=== PATIENT | female | born 1985 | race Caucasian/White ===

== ENCOUNTER 2017-01-03 02:09 | Inpatient (IN) | payer SELFPAY ==
[2017-01-03] VITALS (8 sets, daily range): BP systolic 102–134; BP diastolic 49–73; PULSE 70–90; RESP 14–21; TEMP 97.8–100; O2SAT 94–100
[~2017-01-03 02:09] MED LIST: ALBU6.7H INH; ZITH250T PO
[2017-01-03] MEDS ORDERED: ONDANSETRON HCL 4 MG/2 ML VIAL ONE (02:11)
[2017-01-03] MEDS ORDERED: METOCLOPRAMIDE HCL 10 MG/2 ML VIAL ONE (02:25)
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
[2017-01-03 02:33] LABS: AUTOMATED NEUTROPHIL # 5.7 TH/MM3 (1.8-7.7); BASOPHIL # 0.1 TH/MM3 (0-0.2); BASOPHIL % 0.5 % (0.0-2.0); EOSINOPHIL # 0.1 TH/MM3 (0-0.4); EOSINOPHIL % 0.6 % (0.0-4.0); HEMATOCRIT 38.3 % (35.0-46.0); LYMPH % 42.9 % (9.0-44.0); LYMPHOCYTE # 5.2 TH/MM3 (1.0-4.8); MEAN CELL VOLUME 88.4 FL (80.0-100.0); MEAN CORPUSCULAR HEMOGLOBIN 30.3 PG (27.0-34.0); MEAN CORPUSCULAR HGB CONC 34.3 % (32.0-36.0); MONO % 9.1 % (0.0-8.0); NEUT % 46.9 % (16.0-70.0); PLATELET COUNT 203 TH/MM3 (150-450); RED BLOOD COUNT 4.33 MIL/MM3 (4.00-5.30); RED CELL DISTRIBUTION WIDTH 12.8 % (11.6-17.2); WHITE BLOOD COUNT 12.2 TH/MM3 (4.0-11.0)
[2017-01-03 02:34] LABS: HEMO FLAGS AUTO DIFF
[2017-01-03 02:39] LABS: I-STAT SODIUM 142 MMOL/L (138-146)
[2017-01-03] MEDS ORDERED: ACETAMINOPHEN 325 MG TAB PO PRN (02:45)
[2017-01-03] MEDS ORDERED: SODIUM CHLORIDE 0.9% FLUSH 5 ML FLUSH IVF PRN (02:45)
[2017-01-03] MEDS ORDERED: IOHEXOL 350 MG/ML 10 ML VIAL (for RAD DIAG) IV ONE (02:46)
[2017-01-03 02:50] LABS: APTT (PATIENT) 23.2 SEC (24.3-30.1); INTERNATIONAL NORMALIZED RATIO 1.1 RATIO; PROTHROMBIN TIME - PATIENT 12.3 SEC (9.8-11.6)
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
[2017-01-03 02:57] LABS: BETA HCG QUANT LESS THAN 1 MIU/ML (0-5)
[2017-01-03] MEDS ORDERED: ONDANSETRON HCL 4 MG/2 ML VIAL IV ONE (03:00)
[2017-01-03] MEDS ORDERED: METOCLOPRAMIDE HCL 10 MG/2 ML VIAL IV ONE (03:00)
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
[2017-01-03] MEDS: cefTRIAXone INJ 1,000 MG in SODIUM CHLORIDE 0.9% INJ 100 ML IV SCH ×2 (03:05→13:48)
[2017-01-03] MEDS: SODIUM CHLOR 0.9% 1000 ML INJ 1,000 ML IV SCH ×3 (03:06→13:45)
[2017-01-03] MEDS: PANTOPRAZOLE SODIUM 40 MG VIAL IVP SCH ×2 (03:06→09:00)
[2017-01-03] MEDS: BACITRACIN TOP OINT 15 GM TUBE TOP SCH (03:06)
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
[2017-01-03 03:29] LABS: EOSINOPHILS 1 % (0-4); NEUTROPHIL # MANUAL DIFF 6.8 TH/MM3 (1.8-7.7); POLYS (SEG NEUTROPHILS) 56 % (16-70); WBC DIFF SAMPLE 100
[2017-01-03 03:30] LABS: PLATELET ESTIMATE SMEAR NORMAL (NORMAL); PLATELET MORPHOLOGY NORMAL (NORMAL); SCAN/DIFF FINAL DIFF MANUAL
[2017-01-03] MEDS: ONDANSETRON HCL 4 MG/2 ML VIAL IV PRN ×2 (06:36→13:02)
[2017-01-03] MEDS ORDERED: POTASSIUM PHOSPHATE INJ 30 MMOL in SODIUM CHLOR 0.9% 250 ML INJ 250 ML IV PRN (08:15)
[2017-01-03] MEDS ORDERED: SODIUM PHOSPHATE INJ 30 MMOL in SODIUM CHLOR 0.9% 250 ML INJ 240 ML IV PRN (08:15)
[2017-01-03] MEDS ORDERED: POTASSIUM CHLOR 20 MEQ PREMIX 100 ML IV PRN ×2 (08:15)
[2017-01-03] MEDS ORDERED: POTASSIUM PHOSPHATE MONOBASIC 500 MG TAB PO/TUBE PRN (08:15)
[2017-01-03] MEDS ORDERED: MAGNESIUM SULFATE INJ 4 GM in SODIUM CHLORIDE 0.9% INJ 92 ML IV PRN (08:15)
[2017-01-03] MEDS ORDERED: POTASSIUM CHLORIDE 25 MEQ EFFERVESCENT TAB TUBE PRN (08:15)
[2017-01-03] MEDS ORDERED: POTASSIUM CHLOR 40 MEQ PREMIX 100 ML IV PRN ×2 (08:15)
[2017-01-03] MEDS ORDERED: MAGNESIUM SULFATE INJ 2 GM in SODIUM CHLORIDE 0.9% INJ 96 ML IV PRN (08:15)
[2017-01-03] MEDS ORDERED: MAGNESIUM OXIDE 400 MG TAB PO PRN (08:15)
[2017-01-03] MEDS ORDERED: MAGNESIUM HYDROXIDE SUSP 30 ML CUP PO PRN (08:15)
[2017-01-03] MEDS ORDERED: POTASSIUM PHOSPHATE MONOBASIC 500 MG TAB PO PRN (08:15)
[2017-01-03] MEDS: DOCUSATE SODIUM 50 MG/SENNA 8.6 MG TAB PO SCH ×2 (09:00→19:29)
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
[2017-01-03 10:07] LABS: AUTOMATED NEUTROPHIL # 18.3 TH/MM3 (1.8-7.7); HEMATOCRIT 37.9 % (35.0-46.0); HEMO FLAGS DIFF FINAL; LYMPH % 2.4 % (9.0-44.0); LYMPHOCYTE # 0.5 TH/MM3 (1.0-4.8); MEAN CELL VOLUME 88.6 FL (80.0-100.0); MEAN CORPUSCULAR HEMOGLOBIN 29.7 PG (27.0-34.0); MEAN CORPUSCULAR HGB CONC 33.5 % (32.0-36.0); MONO % 6.7 % (0.0-8.0); NEUT % 90.9 % (16.0-70.0); PLATELET COUNT 151 TH/MM3 (150-450); RED BLOOD COUNT 4.28 MIL/MM3 (4.00-5.30); RED CELL DISTRIBUTION WIDTH 12.7 % (11.6-17.2); WHITE BLOOD COUNT 20.1 TH/MM3 (4.0-11.0)
[2017-01-03 11:11] LABS: ALKALINE PHOSPHATASE 52 U/L (45-117); ALT (GPT) 23 U/L (10-53); ANION GAP 11 MEQ/L (5-15); AST (GOT) 23 U/L (15-37); BICARBONATE 23.9 MEQ/L (21.0-32.0); BLOOD UREA NITROGEN 6 MG/DL (7-18); CHLORIDE 104 MEQ/L (98-107); GLOMERULAR FILTRATION RATE 94 ML/MIN (>89); MAGNESIUM 1.4 MG/DL (1.5-2.5); POTASSIUM 3.6 MEQ/L (3.5-5.1); SODIUM (NA) 139 MEQ/L (136-145); TOTAL BILIRUBIN ADULT 0.5 MG/DL (0.2-1.0)
[2017-01-03 12:00] LABS: MRSA PCR NEGATIVE (NEGATIVE); STAPH AUREUS PCR NEGATIVE (NEGATIVE)
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
[2017-01-03] MEDS ORDERED: DEXAMETHASONE SOD PHOS 4 MG/ML VIAL IV PUSH ONE (18:15)
[2017-01-03] MEDS: MORPHINE SULFATE 4 MG/ML INJ IV PRN (18:23)
[2017-01-03] MEDS: ACETAMINOPHEN 1000 MG/100 ML VIAL IV PRN (19:35)
[2017-01-04] VITALS: BP 127/74; PULSE 82; RESP 17; TEMP 98.7; O2SAT 97
[2017-01-04] MEDS: cefTRIAXone INJ 1,000 MG in SODIUM CHLORIDE 0.9% INJ 100 ML IV SCH ×2 (03:17→15:00)
[2017-01-04] MEDS: SODIUM CHLOR 0.9% 1000 ML INJ 1,000 ML IV SCH ×3 (03:17→20:10)
[2017-01-04] MEDS: BACITRACIN TOP OINT 15 GM TUBE TOP SCH ×3 (03:25→20:10)
[2017-01-04] MEDS: ONDANSETRON HCL 4 MG/2 ML VIAL IV PRN ×2 (03:53→20:20)
[2017-01-04 06:01] LABS: AUTOMATED NEUTROPHIL # 14.5 TH/MM3 (1.8-7.7); BASOPHIL % 0.2 % (0.0-2.0); HEMATOCRIT 36.9 % (35.0-46.0); HEMO FLAGS DIFF FINAL; LYMPH % 2.9 % (9.0-44.0); LYMPHOCYTE # 0.5 TH/MM3 (1.0-4.8); MEAN CELL VOLUME 88.4 FL (80.0-100.0); MEAN CORPUSCULAR HEMOGLOBIN 29.9 PG (27.0-34.0); MEAN CORPUSCULAR HGB CONC 33.8 % (32.0-36.0); MONO % 9.4 % (0.0-8.0); NEUT % 87.5 % (16.0-70.0); PLATELET COUNT 144 TH/MM3 (150-450); RED BLOOD COUNT 4.17 MIL/MM3 (4.00-5.30); RED CELL DISTRIBUTION WIDTH 12.7 % (11.6-17.2); WHITE BLOOD COUNT 16.5 TH/MM3 (4.0-11.0)
[2017-01-04 06:11] LABS: ANION GAP 12 MEQ/L (5-15); AST (GOT) 9 U/L (15-37); BICARBONATE 22.3 MEQ/L (21.0-32.0); BLOOD UREA NITROGEN 8 MG/DL (7-18); CHLORIDE 106 MEQ/L (98-107); GLOMERULAR FILTRATION RATE 115 ML/MIN (>89); POTASSIUM 3.5 MEQ/L (3.5-5.1); SODIUM (NA) 140 MEQ/L (136-145)
[2017-01-04 06:15] LABS: ALKALINE PHOSPHATASE 44 U/L (45-117); ALT (GPT) 19 U/L (10-53); TOTAL BILIRUBIN ADULT 1.3 MG/DL (0.2-1.0)
[2017-01-04] MEDS: DOCUSATE SODIUM 50 MG/SENNA 8.6 MG TAB PO SCH ×2 (07:52→20:09)
[2017-01-04] MEDS: PANTOPRAZOLE SODIUM 40 MG VIAL IVP SCH (07:52)
[2017-01-04] MEDS: MORPHINE SULFATE 4 MG/ML INJ IV PRN ×2 (07:54→23:07)
[2017-01-04 08:12] VITALS: BP 107/65; PULSE 64; RESP 19; TEMP 97.8; O2SAT 95
[2017-01-04 11:56] VITALS: BP 106/61; PULSE 76; RESP 18; TEMP 99.6; O2SAT 98
--- NOTE | 2017-01-04 14:39 | HHI.PR ---
Subjective Subjective Notes Complains of dizziness with standing Reports she was up vomiting all night Objective Vitals/I&O Vital Signs Date Time Temp Pulse Resp B/P Pulse Ox O2 Delivery O2 Flow Rate FiO2 01/04/17 11:56 99.6 76 18 106/61 98 01/03/17 12:43 Room Air 01/03/17 02:09 21 Labs Laboratory Tests Test 01/04/17 04:50 White Blood Count 16.5 Red Blood Count 4.17 Hemoglobin 12.5 Hematocrit 36.9 Mean Corpuscular Volume 88.4 Mean Corpuscular Hemoglobin 29.9 Mean Corpuscular Hemoglobin 33.8 Concent Red Cell Distribution Width 12.7 Platelet Count 144 Mean Platelet Volume 11.1 Neutrophils (%) (Auto) 87.5 Lymphocytes (%) (Auto) 2.9 Monocytes (%) (Auto) 9.4 Eosinophils (%) (Auto) 0.0 Basophils (%) (Auto) 0.2 Neutrophils # (Auto) 14.5 Lymphocytes # (Auto) 0.5 Monocytes # (Auto) 1.6 Eosinophils # (Auto) 0.0 Basophils # (Auto) 0.0 CBC Comment DIFF FINAL Differential Comment Sodium Level 140 Potassium Level 3.5 Chloride Level 106 Carbon Dioxide Level 22.3 Anion Gap 12 Blood Urea Nitrogen 8 Creatinine 0.61 Estimat Glomerular Filtration 115 Rate Random Glucose 129 Calcium Level 8.5 Total Bilirubin 1.3 Aspartate Amino Transf 9 (AST/SGOT) Alanine Aminotransferase 19 (ALT/SGPT) Alkaline Phosphatase 44 Total Protein 6.6 Albumin 3.5 Radiology Last Impressions Pelvis X-Ray 01/03/17218 Signed Impressions: Service Date/Time: Tuesday, January 03, 2017 02:04 - CONCLUSION: No fracture seen. Gene William MD Head CT 01/03/17218 Signed Impressions: Service Date/Time: Tuesday, January 03, 2017 02:26 - CONCLUSION: 1. Multiple hairline skull fractures involving right occipital bone and right temporal bone , and transverse through the petrous ridge, with probable involvement of the right inner ear. 2. Pneumocephalus. No intracranial hemorrhage and no midline shift. Gene William MD Chest X-Ray 01/03/17218 Signed Impressions: Service Date/Time: Tuesday, January 03, 2017 02:04 - CONCLUSION: The lungs are clear. Gene William MD Chest CT 01/03/17218 Signed Impressions: Service Date/Time: Tuesday, January 03, 2017 02:33 - CONCLUSION: Negative trauma CT thorax. Gene William MD Cervical Spine CT 01/03/17218 Signed Impressions: Service Date/Time: Tuesday, January 03, 2017 02:28 - CONCLUSION: 1. Hairline fractures of the right inferior occipital bone, transverse fracture through the base of the right temporal bone, and nondisplaced fracture of the left lateral foramen magnum. 2. Vertebral bodies and posterior elements of the cervical spine are grossly intact. Gene William MD Abdomen/Pelvis CT 01/03/17218 Signed Impressions: Service Date/Time: Tuesday, January 03, 2017 02:31 - CONCLUSION: Negative trauma CT abdomen/pelvis. Probable right ovarian cyst. Gene William MD Narrative Exam GENERAL: 31 year old well-nourished, well developed female lying in bed. SKIN: Warm and dry. RIGHT facial abrasions with edema noted. HEAD: Normocephalic. EYES: PERRL. ENT: No nasal or ear bleeding/discharge. Mucous membranes pink and moist. NECK: Trachea midline. No JVD. CARDIOVASCULAR: Regular rate and rhythm. RESPIRATORY: No accessory muscle use. Lungs clear to auscultation. Breath sounds equal bilaterally. GASTROINTESTINAL: Abdomen soft, non-tender, nondistended. + BS. MUSCULOSKELETAL: Extremities without cyanosis, or edema. No obvious deformities. NEUROLOGICAL: Awake and alert. Normal speech. A/P Assessment and Plan INJURIES: RIGHT occipital bone fx RIGHT temporal bone transverse fx LEFT lateral foramen magnum fx Pneumocephalus Concussion Diet: Regular- unable tolerate by mouth due to nausea and vomiting Pulm: IS, encourage patient use. On RA Pain: Tylenol, Morphine, IV Tylenol (N/V) Activity: BR, PT evaluated. Patient independent but has poor balance due to dizziness. IV: NS@ 75- GI: IV Protonix Bowel: Zara-colace, MOM. DVT: SCDs, Lovenox 40 4 mg IV Decadron ordered for nausea and vomiting 1 dose. Zofran when necessary Continue IV Rocephin for pneumocephalus Neurosurgery following Case management consulted to assist discharge planning. Plan of care discussed patient at bedside. Cristin Spencer Jan 04, 2017 14:39
[2017-01-04 16:00] VITALS: BP 121/68; PULSE 64; RESP 18; TEMP 98; O2SAT 99
[2017-01-04] MEDS: ACETAMINOPHEN 1000 MG/100 ML VIAL IV PRN (18:02)
[2017-01-04 20:00] VITALS: BP 109/62; PULSE 60; RESP 17; TEMP 99.2; O2SAT 98
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
[2017-01-05] VITALS: BP 104/62; PULSE 62; RESP 17; TEMP 98.9; O2SAT 98
[2017-01-05] MEDS: cefTRIAXone INJ 1,000 MG in SODIUM CHLORIDE 0.9% INJ 100 ML IV SCH (04:39)
[2017-01-05] MEDS: ACETAMINOPHEN 1000 MG/100 ML VIAL IV PRN (05:18)
[2017-01-05] MEDS: ONDANSETRON HCL 4 MG/2 ML VIAL IV PRN (05:18)
[2017-01-05] MEDS: MORPHINE SULFATE 4 MG/ML INJ IV PRN (05:19)
[2017-01-05] MEDS ORDERED: WALKER WHEELS/F1 MIS (07:51)
[2017-01-05 08:00] VITALS: BP 115/58; PULSE 51; RESP 17; TEMP 98.2; O2SAT 99
[2017-01-05] MEDS ORDERED: PROMETHAZINE HCL 12.5 MG SUPP RECTAL PRN (08:00)
[2017-01-05] MEDS: PANTOPRAZOLE SODIUM 40 MG VIAL IVP SCH (08:54)
[2017-01-05] MEDS: BACITRACIN TOP OINT 15 GM TUBE TOP SCH (08:55)
[2017-01-05] MEDS: DOCUSATE SODIUM 50 MG/SENNA 8.6 MG TAB PO SCH (08:59)
[2017-01-05] MEDS ORDERED: oxyCODONE/ACETAMINOPHEN 5 MG/325 MG TAB PO PRN (11:30)
[2017-01-05 12:00] VITALS: BP 114/70; PULSE 47; RESP 16; TEMP 97.8; O2SAT 99
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
== END 2017-01-05 15:15 | disposition home or self-care (01) | DRG 87 ==
LOC: NEPI 02:09 → EDBD 02:40 → NEDA 02:40 → MERGE 02:40 → N03A 04:51 → N07A 12:59
PROVIDERS: ADMIT Surgery; ATTEND Surgery
DX: S02.119A Unspecified fracture of occiput, initial encounter for closed fracture (principal); G93.89 Other specified disorders of brain; S02.19XA Other fracture of base of skull, initial encounter for closed fracture; S06.0X9A Concussion with loss of consciousness of unspecified duration, initial encounter; R41.82 Altered mental status, unspecified; R40.2412 Glasgow coma scale score 13-15, at arrival to emergency department; S80.812A Abrasion, left lower leg, initial encounter; S80.811A Abrasion, right lower leg, initial encounter; S40.812A Abrasion of left upper arm, initial encounter; S40.811A Abrasion of right upper arm, initial encounter; S00.81XA Abrasion of other part of head, initial encounter; V29.88XA Motorcycle rider (driver) (passenger) injured in other specified transport accidents, initial encounter
CPT/HCPCS: 70450; 71010; 71260; 72125; 72170; 74177; 80053; 82435; 82565; 82947; 83735; 84100; 84132; 84295; 84520; 84702; 85007; 85025; 85027; 85610; 85730; 86850; 86900; 86901; 87640; 87641; 94150; 96374; 99291; C9113; G0390; J0131; J0696; J1100; J2270; J2405; J2765; J7030; L0150; L0172; Q9967